=== PATIENT | female | born 1950 | race Caucasian/White ===

== ENCOUNTER 2018-05-19 08:10 | Day surgery (SDC) | payer MEDICARE, SELFPAY ==
--- NOTE | 2018-05-18 12:41 | W.PIPPEYE ---
History of Present Illness Chief Complaint: Progressive decreased vision, left eye Narrative: The patient is a 67-year old lady with history of macular degeneration of the right eye who presented with complaints of progressive decreased vision in her left eye. She has significant difficulty with her vision at both distance and near and trouble with glare from headlights at night. On examination she was noted to have moderate bilateral nuclear and cortical cataracts with visual acuity of 20/40 OD, 20/30 OS with significant glare disability. The option of cataract surgery was offered to patient and she wished to proceed. NOTE: The Chief Complaint, HPI, Past Medical History, Past Surgical History, Family History, Social History, Medications, and complete Ophthalmic Exam with detailed Assessment and Plan have already been documented in the patient's outpatient ophthalmic record and are not covered again in detail here. PFSH Family History Other Cancer Social History Smoking/Tobacco Use Status: Former Tobacco Use Drug use: Never Meds Home Medications Medication Instructions Recorded Confirmed Type levothyroxine [Synthroid] 50 mcg PO DAILY 05/12/18 05/16/18 History ranitidine HCl 150 mg PO BID 05/12/18 05/16/18 History Allergies Allergy/AdvReac Type Severity Reaction Status Date / Time esomeprazole [From Nexium] AdvReac Intermediate Diarrhea Verified 05/16/18 08:14 Exam OCULAR EXAM:: Most recent ocular examination is significant for corrected visual acuity of 20/40 OD, 20/30 OS. Intraocular pressure is 15 OD, 14 OS. Extraocular motility is normal. Pupils equal, round, and reactive without afferent pupillary defect slit-lamp examination reveals pupils dilating to 7 mm OU. 2+ nuclear with 1+ cortical cataract OU. Dilated funduscopic examination shows disc cupping of 0.2 OU with good color. In the right eye there is some pigment clumping superior nasal to the foveal center. The macula and peripheral retina is otherwise normal. In the left eye, retinal vasculature, macula and peripheral retina are all normal. BRIGHTNESS ACUITY TESTING (BAT):: Brightness acuity testing of the left eye off is 20/30. Low is 20/30. Medium is 20/50. High is 20/50. Assessment and Plan (1) Nuclear sclerotic cataract of left eye: Current visit: No Status: Acute Assessment: Visually significant cataract, left eye. Plan: Cataract extraction with intraocular lens implantation, left eye (2) Cortical cataract of left eye: Current visit: No Status: Acute Assessment: Visually significant cataract, left eye. Plan: Cataract extraction with intraocular lens implantation, left eye Note: NOTE:: The details of the planned surgery, including the risks, indications,limitations,expectations,outcome and possible complications were explained to the patient. The patient understands the complications including, but not limited to: infection, hemorrhage, posterior dislocation of the lens or nuclear fragments which may require the intervention of a vitreoretinal surgeon, possible loss of the eye, or from anesthetic complications. The patient has been made aware of the option of not having surgery, that vision following surgery may not be equal to that prior to surgery, and that the planned surgery may not achieve the intended results. Following this discussion, which the patient appeared to understand, the patient wishes to proceed with cataract surgery with lens implantation of the affected eye to improve and maximize vision.
[2018-05-19 08:25] VITALS: BP 161/72; PULSE 47; RESP 18; TEMP 36.4; O2SAT 100
[2018-05-19] MEDS: Tetracaine 0.5% 4 ML BTL OS ×3 (08:53→09:58)
[2018-05-19] MEDS: Tropicam./Phenyleph. (1/2.5%) 5 ML BTL OS ×2 (08:53→08:57)
--- NOTE | 2018-05-19 09:48 | W.PM.DSUDISC ---
Discharge Plan Disposition Patient Disposition: HOME Condition: Stable Discharge Details Attending Provider: Keegan Newton Primary Care Provider: None,None Home Meds and New Rx's Prescriptions: No Action levothyroxine [Synthroid] 50 mcg Tablet 50 mcg PO DAILY RF: 0 ranitidine HCl 150 mg Tablet 150 mg PO BID RF: 0 Discharge Instructions Stand Alone Forms: Post-op Topical Cataract, Carolyn Goodman (DSU) Discharge Orders Discharge Orders: Discharge Order (Routine); Ordered 05/19/18 Ordered By: Keegan Newton DS: Diagnosis Discharge Diagnosis (1) Nuclear sclerotic cataract of left eye: Status: Resolved (2) Cortical cataract of left eye: Status: Resolved (3) Status post cataract extraction and insertion of intraocular lens of left eye: Status: Chronic
--- NOTE | 2018-05-19 09:49 | ROE_ITS ---
Date of service: 05/19/18 Time of Service: 10:30 Operative Note PRE-OP DIAGNOSIS: Cataract, left eye POST-OP DIAGNOSIS: same PROCEDURE: Cataract extraction using phacoemulsification with intraocular lens implant, left eye SURGEON: Keegan Newton ANESTHESIA: MAC and local (sub-tenon's anesthetic infiltration) PATHOLOGY: none sent COMPLICATIONS: None Patient was transported to: same day Patient's condition: stable Implants: Flip and Flip Vision / [employer] Tecnis ZCB00 Indications: Progressive decreased vision due to cataract, left eye Procedure Description: CATARACT SURGERY OPERATIVE REPORT PREOPERATIVE DIAGNOSIS: Nuclear/cortical cataract, left eye POSTOPERATIVE DIAGNOSIS: Same OPERATION: Cataract extraction using phacoemulsification with posterior chamber intraocular lens implant, left eye. IOL: IOL Technology Education Teacher/Model: J&J Vision / RODNEY Tecnis ZCB00 IOL Power: + 19.50 diopters IOL Serial Number: [id number] Optic Diameter: 6.0mm Haptic/Overall Diameter: 13.0mm PHACO INFO: Bud [employer] Vision System with OZil and Active Fluidics Cumulative Dispersed Energy (CDE): 7.54 seconds SURGEON: Keegan Newton MD, JHOAN ANESTHESIA: Monitored Anesthesia Care (MAC), with local sub-tenon's anesthetic infiltration COMPLICATIONS: None SPECIMENS: None INDICATIONS FOR PROCEDURE: The patient is a 67-year-old lady with history of diminished visual acuity in her left eye secondary to the development of nuclear and cortical cataract. She was significantly symptomatic that she desired cataract surgery and attempt to improve and maximize her vision. PROCEDURE: The correct surgical eye was identified and marked as the left eye and the pupil was dilated in the preoperative area using mydriatics and cycloplegics. The dilated pupil size was 7.0 mm. Oral sedation was administered in the form of an Imprimis MKO Melt (midazolam 3mg/ketamine 25mg/ondansetron 2m g). The patient was brought to the operating room where cardiopulmonary monitoring was instituted and surgical time-out was performed, confirming the correct operative eye and IOL power. Topical anesthesia was administered and ophthalmic povidone-iodine 5% was instilled into the conjunctival fornices. Lidocaine gel was applied to the cornea and the john-ocular area was prepped with Betadine 10% solution and draped in the usual sterile fashion for intraocular surgery, including an aperture drape. A Tegaderm transparent film dressing was cut in half and used to cover the lashes and lid margins. Care was taken to sequester the lashes and lid margins under the Tegaderm dressing. A lid speculum was placed between the lids of the operative eye and the Kacie-Jennifer operating microscope was m aneuvered into position. Taina scissors were then used to make a conjunctival buttonhole approximately 6mm posterior to the limbus in the inferonasal quadrant. Blunt dissection was carried out to expose bare sclera, and a blunt-tipped sub-tenon?s anesthesia cannula was introduced and passed posteriorly along the globe where non- preserved plain lidocaine was injected into posterior sub-Tenon?s space. A sideport knife was used to make a paracentesis port superior/superiortemporal, and the anterior chamber was filled with Healon GV. A 2.4mm keratome knife was used to create a half-thickness groove at the limbus and then to construct a three-plane near-clear corneal tunnel extending 2.0mm into clear cornea in the temporal position. . A flap was raised on the anterior capsule and capsulorhexis forceps were used to complete a continuous curvilinear capsulorhexis of 5.0 mm. Balanced salt solution was then used to perform cortical cleaving hydrodissection and nuclear hydrodelineation until the lens could be freely rotated within the capsular bag. The lens nucleus was then disassembled and removed within the capsular bag and iris plane using phacoemulsification. Residual cortical material was removed using the 45-degree angled silicone I/A tip with 0.3mm port. The posterior capsule was carefully polished to remove as much residual lens epithelial cells as safely possible. The capsular bag was then inflated and the anterior chamber deepened with viscoelastic. The lens implant described above was inserted into the capsular bag using the RODNEY [place] Injector. A Kuglen hook was used to dial the IOL into position. Residual viscoelastic was then removed first from posterior to the IOL, then from the anterior chamber using the I/A handpiece. The lens implant was noted to center nicely within the capsular bag. The incisions were stromally hydrated, and the anterior chamber was reformed using BSS. Then 0.4cc of moxifloxacin 1.5mg/ml were injected into the capsular bag and anterior chamber. The incisions were checked with a Weck spear and found to be secure. Several drops of ophthalmic povidone-iodine 5% were then applied to the eye followed by two drops of Imprimis combination gatifloxacin/dexamethasone solution. The drapes were removed and a clear plastic protective eye shield was placed over the eye. The patient was then returned to Same Day Surgery in stable condition.
[2018-05-19] MEDS: Lidocaine 2% Jelly 6 ML SYR (09:58)
[2018-05-19] MEDS: Povidone-Iodine Ophth 30 ML BTL (09:58)
[2018-05-19] MEDS: Balanced Salt Soln.-PLUS 500 ML BAG (10:02)
[2018-05-19] MEDS: Lidocaine 1% Pres-Free 5 ML VIAL (10:02)
[2018-05-19 10:50] VITALS: BP 139/77; PULSE 65; RESP 16; TEMP 36.3; O2SAT 96
== END 2018-05-19 10:55 | disposition home or self-care (01) ==
PROVIDERS: Visit Provider Ophthalmology
PROC: (CPT 66984; principal; 2018-05-19 10:30)
DX: H25.812 Combined forms of age-related cataract, left eye (principal); K21.9 Gastro-esophageal reflux disease without esophagitis
CPT/HCPCS: 66984; V2632

== ENCOUNTER 2018-06-09 07:43 | Day surgery (SDC) | payer MEDICARE, SELFPAY ==
--- NOTE | 2018-06-08 13:44 | W.PIPPEYE ---
History of Present Illness Chief Complaint: Progressive decreased vision, right eye Narrative: The patient is a 67-year-old old lady who presented with complaints of decreased vision in both eyes at both distance and near, left eye worse than right. She noted significant difficulty with glare from headlights at night and also some bright sunlight. On examination she was noted to have moderate bilateral nuclear and cortical cataracts with visual acuity of 20/40 OD, 20/30 OS, but with significant glare disability. The option of cataract surgery was offered to the patient and she wished to proceed, undergoing cataract surgery in the left eye on 05/19/2018. She now has best corrected vision of 20/20 in the left eye. She now presents for cataract surgery in the right eye. NOTE: The Chief Complaint, HPI, Past Medical History, Past Surgical History, Family History, Social History, Medications, and complete Ophthalmic Exam with detailed Assessment and Plan have already been documented in the patient's outpatient ophthalmic record and are not covered again in detail here. [facility] Medical History Cataract (Chronic) GERD (gastroesophageal reflux disease) (Chronic) History of hysterectomy (Chronic) Hypothyroid (Chronic) Surgical History Status post cataract extraction and insertion of intraocular lens of left eye (Chronic 05/19/18) History of carpal tunnel release (Acute) History of tubal ligation (Chronic) Family History Other Cancer Social History Smoking/Tobacco Use Status: Former Tobacco Use Alcohol Intake: current Alcohol Intake frequency: 0-2 drinks per day Drug use: Never Do you feel safe at home: Yes Meds Home Medications Medication Instructions Recorded Confirmed Type levothyroxine [Synthroid] 50 mcg PO DAILY 05/12/18 05/19/18 History ranitidine HCl 150 mg PO BID 05/12/18 05/19/18 History Allergies Allergy/AdvReac Type Severity Reaction Status Date / Time esomeprazole [From Nexium] AdvReac Intermediate Diarrhea Verified 05/19/18 08:20 Exam OCULAR EXAM:: Most recent ocular examination is significant for corrected visual acuity of 2050 OD, 20/20 OS. Intraocular pressure is 15 OD, 9 OS. Extraocular motility is normal. Pupils equal, round, and reactive without afferent pupillary defect slit-lamp examination reveals pupils dilating to 7 mm OU. 2+ nuclear/1+ cortical cataract OD. Well-positioned PCIOL OS with clear posterior capsule. Dilated funduscopic examination shows disc cupping of 0.2 OU with good color. The retinal vasculature is normal. In the left eye the macula and peripheral retina are normal. In the right eye, there is some pigment clumping superior nasal to the foveal center. Peripheral) vitreous is otherwise normal. BRIGHTNESS ACUITY TESTING (BAT):: Brightness acuity testing of the right eye is 20/40. Low was 20/40. Median is 20/50. On the high setting is 20/60. Assessment and Plan (1) Nuclear sclerotic cataract of right eye: Current visit: No Status: Acute Assessment: Visually significant cataract, right eye. Plan: Cataract extraction with intraocular lens implantation, right eye (2) Cortical cataract of right eye: Current visit: No Status: Acute Assessment: Visually significant cataract, right eye. Plan: Cataract extraction with intraocular lens implantation, right eye Note: NOTE:: The details of the planned surgery, including the risks, indications,limitations,expectations,outcome and possible complications were explained to the patient. The patient understands the complications including, but not limited to: infection, hemorrhage, posterior dislocation of the lens or nuclear fragments which may require the intervention of a vitreoretinal surgeon, possible loss of the eye, or from anesthetic complications. The patient has been made aware of the option of not having surgery, that vision following surgery may not be equal to that prior to surgery, and that the planned surgery may not achieve the intended results. Following this discussion, which the patient appeared to understand, the patient wishes to proceed with cataract surgery with lens implantation of the affected eye to improve and maximize vision.
--- NOTE | 2018-06-09 07:17 | W.PM.DSUDISC ---
Discharge Plan Disposition Patient Disposition: HOME Condition: Stable Discharge Details Attending Provider: Keegan Newton Primary Care Provider: None,None Home Meds and New Rx's Prescriptions: No Action levothyroxine [Synthroid] 50 mcg Tablet 50 mcg PO DAILY RF: 0 ranitidine HCl 150 mg Tablet 150 mg PO BID RF: 0 acetaminophen [Tylenol] 325 mg Capsule 650 mg PO Q6H PRNRF: 0 Discharge Instructions Stand Alone Forms: Post-op Topical Cataract, Carolyn Goodman (DSU) Discharge Orders Discharge Orders: Discharge Order (Routine); Ordered 06/09/18 Ordered By: Keegan Newton DS: Diagnosis Discharge Diagnosis (1) Nuclear sclerotic cataract of right eye: Status: Resolved (2) Cortical cataract of right eye: Status: Resolved (3) Status post cataract extraction and insertion of intraocular lens of right eye: Status: Chronic
--- NOTE | 2018-06-09 07:18 | W.PM.OP ---
Date of service: 06/09/18 Time of Service: 09:31 Operative Note PRE-OP DIAGNOSIS: Cataract, right eye PROCEDURE: Cataract extraction using phacoemulsification with intraocular lens implant, right eye SURGEON: Keegan Newton ANESTHESIA: MAC and local (sub-tenon's anesthetic infiltration) ESTIMATED BLOOD LOSS: 0 PATHOLOGY: none sent COMPLICATIONS: None Patient was transported to: same day Patient's condition: stable Implants: Flip and Flip Vision / [employer] Tecnis ZCB00 intraocular lens Indications: Progressive decreased vision due to cataract, right eye Procedure Description: CATARACT SURGERY OPERATIVE REPORT PREOPERATIVE DIAGNOSIS: Nuclear/cortical cataract, right eye POSTOPERATIVE DIAGNOSIS: Same OPERATION: Cataract extraction using phacoemulsification with posterior chamber intraocular lens implant, right eye. IOL: IOL Master Control Supervisor/Model: J&J Vision / RODNEY Tecnis ZCB00 IOL Power: + 19.50 diopters IOL Serial Number: [id number] Optic Diameter: 6.0mm Haptic/Overall Diameter: 13.0mm PHACO INFO: [employer] Vision System with OZil and Active Fluidics Cumulative Dispersed Energy (CDE): 12.02 seconds SURGEON: Keegan Newton MD, JHOAN ANESTHESIA: Monitored Anesthesia Care (MAC), with local sub-tenon's anesthetic infiltration COMPLICATIONS: None SPECIMENS: None INDICATIONS FOR PROCEDURE: The patient is a 67-year-old lady with history of diminished visual acuity in both eyes secondary to the development of bilateral nuclear and cortical cataracts. She has already undergone cataract surgery in her left eye and is doing well postoperatively. She now presents for cataract surgery in her right eye. PROCEDURE: The correct surgical eye was identified and marked as the right eye and the pupil was dilated in the preoperative area using mydriatics and cycloplegics. The dilated pupil size was 7.0 mm. Oral sedation was administered in the form of an Imprimis MKO Melt (midazolam 3mg/ketamine 25mg/ondansetron 2mg). The patient was brought to the operating room where cardiopulmonary monitoring was instituted and surgical time-out was performed, confirming the correct operative eye and IOL power. Topical anesthesia was administered and ophthalmic povidone-iodine 5% was instilled into the conjunctival fornices. Lidocaine gel was applied to the cornea and the john-ocular area was prepped with Betadine 10% solution and draped in the usual sterile fashion for intraocular surgery, including an aperture drape. A Tegaderm transparent film dressing was cut in half and used to cover the lashes and lid margins. Care was taken to sequester the lashes and lid margins under the Tegaderm dressing. A lid speculum was placed between the lids of the operative eye and the Kacie-Jennifer operating microscope was maneuvered into position. Taina scissors were then used to make a conjunctival buttonhole approximately 6mm posterior to the limbus in the inferonasal quadrant. Blunt dissection was carried out to expose bare sclera, and a blunt-tipped sub-tenon?s anesthesia cannula was introduced and passed posteriorly along the globe where non-preserved plain lidocaine was injected into posterior sub-Tenon?s space. A sideport knife was used to make a paracentesis port inferiortemporally, and the anterior chamber was filled with Healon GV. A 2.4mm keratome knife was used to create a half-thickness groove at the limbus and then to construct a three-plane near-clear corneal tunnel extending 2.0mm into clear cornea in the superiortemporal position. . A flap was raised on the anterior capsule and capsulorhexis forceps were used to complete a continuous curvilinear capsulorhexis of 5.0 mm. Balanced salt solution was then used to perform cortical cleaving hydrodissection and nuclear hydrodelineation until the lens could be freely rotated within the capsular bag. The lens nucleus was then disassembled and removed within the capsular bag and iris plane using phacoemulsification. Residual cortical material was removed using the I/A handpiece. The posterior capsule was carefully polished to remove as much residual lens epithelial cells as safely possible. The capsular bag was then inflated and the anterior chamber deepened with viscoelastic. The lens implant described above was inserted into the capsular bag using the RODNEY [place] Injector. A Kuglen hook was used to dial the IOL into position. Residual viscoelastic was then removed first from posterior to the IOL, then from the anterior chamber using the I/A handpiece. The lens implant was noted to center nicely within the capsular bag. The incisions were stromally hydrated, and the anterior chamber was reformed using BSS. Then 0.4cc of moxifloxacin 1.5mg/ml were injected into the capsular bag and anterior chamber. The incisions were checked with a Weck spear and found to be secure. Several drops of ophthalmic povidone-iodine 5% were then applied to the eye followed by two drops of Imprimis combination gatifloxacin/dexamethasone solution. The drapes were removed and a clear plastic protective eye shield was placed over the eye. The patient was then returned to Same Day Surgery in stable condition.
[2018-06-09 08:06] VITALS: BP 165/75; PULSE 46; RESP 16; TEMP 35.6; O2SAT 100
[2018-06-09] MEDS: Tetracaine 0.5% 4 ML BTL OD ×4 (08:10→08:56)
[2018-06-09] MEDS: Tropicam./Phenyleph. (1/2.5%) 5 ML BTL OD ×3 (08:11→08:21)
[2018-06-09] MEDS: Lidocaine 2% Jelly 6 ML SYR (08:57)
[2018-06-09] MEDS: Balanced Salt Soln.-PLUS 500 ML BAG (08:57)
[2018-06-09] MEDS: Povidone-Iodine Ophth 30 ML BTL (08:57)
[2018-06-09] MEDS: Lidocaine 1% Pres-Free 5 ML VIAL (09:03)
[2018-06-09 09:50] VITALS: BP 138/69; PULSE 66; RESP 16; TEMP 36.2; O2SAT 97
== END 2018-06-09 09:51 | disposition home or self-care (01) ==
LOC: SUR 07:44
PROVIDERS: Visit Provider Ophthalmology
PROC: (CPT 66984; principal; 2018-06-09 09:30)
DX: H25.811 Combined forms of age-related cataract, right eye (principal); Z98.42 Cataract extraction status, left eye; Z96.1 Presence of intraocular lens; K21.9 Gastro-esophageal reflux disease without esophagitis
CPT/HCPCS: 66984; V2632